=== PATIENT | female | born 1970 | race Caucasian/White ===

== ENCOUNTER 2020-07-03 09:39 | Outpatient (CLI) | payer OTHER, SELFPAY ==
--- NOTE | 2020-07-03 09:53 | MM_ITS ---
WS: [id number] BILATERAL DIGITAL DIAGNOSTIC MAMMOGRAM MAMMOGRAPHY WITH CAD CLINICAL INFORMATION: 6 MO F/U ABNORMAL MAMMO COMPARISON: December 01, 2018 TECHNIQUE: Bilateral CC, MLO, and ML views. FINDINGS: Scattered fibroglandular densities bilaterally. Punctate and lucent centered calcifications. A few st able intramammary lymph nodes are unchanged. Ultrasound is pending. ULTRASOUND BREAST LEFT TECHNIQUE: Ultrasound left breast focused area of concern. CLINICAL INFORMATION: 6 MO F/U ABNORMAL MAMMO COMPARISON: 2018 FINDINGS: Ultrasound left breast at the 2:00 and 4:00 positions. Again seen are a few hypoechoic lesions better assessed today with echogenic [place] consistent with incidental lymph nodes. No evidence of pathologic mass or lesion to target for biopsy. Recommend return to annual mammography. MM/[place] [id number] IMPRESSION: BI-RADS: 2-Benign FOLLOW UP: 1 Year Follow-up Recommend return to annual screening mammography.
== END 2020-07-03 09:40 | disposition home or self-care (01) ==
LOC: RADSHAW 09:42
PROVIDERS: Family Provider Family Medicine; PCP Family Medicine; Visit Provider Family Medicine
DX: R92.8 Other abnormal and inconclusive findings on diagnostic imaging of breast (principal)
CPT/HCPCS: 76642; 77066

== ENCOUNTER → 2021-05-05 10:04 | Outpatient (BNVA) | payer OTHER, SELFPAY | PROVIDERS: Family Provider Family Medicine; PCP Family Medicine; Referring Provider Family Medicine; Visit Provider Specialist | DX: G25.0 Essential tremor (principal); Z71.85 Encounter for immunization safety counseling; F17.200 Nicotine dependence, unspecified, uncomplicated | CPT/HCPCS: 99203 ==

== ENCOUNTER 2022-05-11 15:22 | Outpatient (CLI) | payer OTHER, SELFPAY ==
--- NOTE | 2022-05-11 15:30 | MM_ITS ---
WS: [id number] VIEWS: MLO and CC views both breasts. 3D digital tomosynthesis is also included in this exam. Comparison made with prior exam of 02/09/2016, 03/10/2017, 10/17/2018, 07/03/2020.. Findings: There was no sign of mass, architectural distortion or suspicious calcification in either breast. Sta ble appearing nodular densities in both breasts.Scattered fibroglandular densities MM/[place] [id number] Impression: BI-RADS: 2-Benign FOLLOW-UP: 1 Year Follow-up This mammogram was also analyzed by the Computer Aided Detection System R2 Imag e Sustainability Engineer.
== END 2022-05-11 15:23 | disposition home or self-care (01) ==
LOC: RAD 15:23
PROVIDERS: PCP Family Medicine; Visit Provider Family Medicine
DX: Z12.31 Encounter for screening mammogram for malignant neoplasm of breast (principal)
CPT/HCPCS: 77063; 77067

== ENCOUNTER → 2023-08-30 15:21 | Outpatient (BNVA) | payer OTHER, SELFPAY | PROVIDERS: PCP Family Medicine; Visit Provider Nurse Practitioner Family | DX: J02.9 Acute pharyngitis, unspecified (principal) | CPT/HCPCS: 87880 ==

== ENCOUNTER 2023-11-16 09:30 | Emergency (ER) | payer OTHER, SELFPAY ==
[2023-11-16 09:35] VITALS: BP 124/78; PULSE 83; RESP 18; TEMP 36.7; O2SAT 100
--- NOTE | 2023-11-16 09:48 | XRR_ITS ---
PROCEDURE INFORMATION: Exam: XR Chest Exam date and time: 11/16/2023 9:59 AM Age: 52 years old Clinical indication: Pain; Chest pressure; Additional info: Cp TECHNIQUE: Imaging protocol: Radiologic exam of the chest. Views: 1 view. COMPARISON: No relevant prior studies available. FINDINGS: Lungs: No focal lung consolidation. Chronic appearing interstitial lung markings. Right lower lung 0.2 cm granuloma. Pleural spaces: No pleural effusion. No pneumothorax. Heart/Mediastinum: Unremarkable. No cardiomegaly. Bones/joints: No acute bony abnormality. XR/XR chest 1V portable [id number] IMPRESSION: No focal lung consolidation. Chronic appearing interstitial lung markings.
--- NOTE | 2023-11-16 09:48 | ECG_ITS ---
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 Measurements Intervals [place] Rate: 87 P: 51 MS: 151 QRS: 39 QRSD: 82 T: 42 QT: 329 QTc: 396 Interpretive Statements SINUS RHYTHM LOW QRS VOLTAGE IN PRECORDIAL LEADS [QRS DEFLECTION < 1.0 mV IN CHEST LEADS] No previous ECG available for comparison Electronically Signed On 11-16-2023 18:10:58 CDT by Daniela James M.D. [id number]
--- NOTE | 2023-11-16 09:56 | ED_ITS ---
HPI - Chest Pain 2 General: Chief Complaint: Chest Pain Stated Complaint: chest pains Time Seen by Provider: 11/16/23 09:45 Source: patient Mode of arrival: ambulatory Limitations: no limitations History of Present Illness: 52-year-old female states she has been h aving some chest pain since 4 AM. States been a sharp pain In the center of the right side of her chest had some dyspnea as well. She denies any worse improved factors states pain is currently a 3 out of 10. Denies any nausea vomiting or abdominal pain no history of heart disease. Associated symptoms: Reports dyspnea; Deny abdominal pain, fever(s), nausea or vomiting Review of Systems 2 Const: Denies: fever(s), chills, body aches or change in appetite ENMT: Denies: throat pain or dental pain Card: Reports: chest pain Resp: Reports: dyspnea GI: Denies: abdominal pain, nausea, vomiting or diarrhea Musc: Denies: neck pain or back pain Skin/Breast: Denies: rash Neuro: Denies: headache(s) PFSH ED 2 PFSH: Family History Other CAD (coronary artery disease) Cancer Hypertension Physical Exam 2 Const: COMMON NORMALS: no acute distress, patient oriented x3 and healthy appearing HENMT: COMMON NORMALS: normocephalic and atraumatic HEAD & SCALP: n ormocephalic and atraumatic Neck/C-Spine: COMMON NORMALS: full ROM and supple Chest: COMMONS NORMALS: normal inspection of the chest Resp: COMMON NORMALS: normal respiratory effort, No retractions, No use of accessory muscles and clear to auscultation bilaterally AUSCULTATION: clear to auscultation bilaterally Cardio: COMMON NORMALS: regular rate, regular rhythm and No murmurs present (Cardio) RATE: regular rate RHYTHM: regular rhythm GI: COMMON NORMALS: Normal to inspection, nondistended, normoactive bowel sounds present, Soft to palpation, non-tender and no masses PALPATION: Yes Soft to palpation Extremity: COMMON NORMALS: normal to inspection and full ROM Neuro: COMMON NORMALS: patient oriented x3, moves all extremities and no focal motor deficits Psych: COMMON NORMALS: mental status grossly normal, Normal thought process present and cooperative THOUGHT PROCESS: Normal thought process present Skin: COMMON NORMALS: no rashes or lesions noted and no wounds GENERAL SKIN EXAM: no rashes or lesions noted Course 2 Vital Signs: Vital signs: Vital Signs Temperature 98.1 F 11/16/23 09:35 Pulse Rate 79 11/16/23 12:07 Respiratory Rate 15 11/16/23 09:57 Blood Pressure 114/81 11/16/23 12:07 Pulse Oximetry 93 11/16/23 12:07 Oxygen Delivery Me thod Room Air 11/16/23 12:07 MDM - Chest Pain Medical Decision Making Patient presents here with chest pain atypical in nature her troponins here are negative D-dimer is negative no signs of pulm embolism or dissection she is stable for discharge she is to follow-up with PCP return if worsening she understands agrees to plan Medical Records I reviewed the patient's medical records. Lab Data I reviewed the patient's lab results. 11/16/23 09:53 11/16/23 09:53 Radiology Impressions Chest X-Ray 11/16/23 09:48 IMPRESSION: No focal lung consolidation. Chronic appearing interstitial lung markings. Laboratory Results WBC 9.98 10^3/uL (3.29-11.43) 11/16/23 09:53 RBC 5.03 10^6/uL (3.85-5.65) 11/16/23 09:53 Hgb 15.30 g/dL (11.27-16.99) 11/16/23 09:53 Hct 45.9 % (36-47) 11/16/23 09:53 MCV 91.3 fl (85-98) 11/16/23 09:53 MCH 30.4 pg (27-33) 11/16/23 09:53 MCHC 33.3 g/dL (30-55) 11/16/23 09:53 RDW 12.5 % (12.1-15.1) 11/16/23 09:53 Plt Count 348 10^3/cmm (157-399) 11/16/23 09:53 MPV 9.4 fL (7.4-10.4) 11/16/23 09:53 Neut % (Auto) 72.4 % 11/16/23 09:53 Lymph % (Auto) 17.6 % 11/16/23 09:53 [place] % (Auto) 5.5 % 11/16/23 09:53 Eos % (Auto) 3.6 % 11/16/23 09:53 Baso % (Auto) 0.6 % 11/16/23 09:53 Neut # (Auto) 7.22 10^3/uL (1.8-7.7) 11/16/23 09:53 Lymph # (Auto) 1.8 10^3/uL (0.8-4.8) 11/16/23 09:53 [place] # (Auto) 0.6 10^3/uL (0.2-0.9) 11/16/23 09:53 Eos # (Auto) 0.4 10^3/uL (0.0-0.8) 11/16/23 09:53 Baso # (Auto) 0.1 10^3/uL (0.0-0.1) 11/16/23 09:53 Nucleated RBC % (auto) 0 % 11/16/23 09:53 Nucleated RBCs # 0.0 /100WBC 11/16/23 09:53 PT 12.50 SECONDS (12.1-14.9) 11/16/23 09:53 INR 0.91 (0.8-1.2) 11/16/23 09:53 D-Dimer 0.36 ug/mLFEU (0-0.59) 11/16/23 09:53 Sodium 139 mmol/L (136-145) 11/16/23 09:53 Potassium 4.3 mmol/L (3.5-5.1) 11/16/23 09:53 Chloride 101 mmol/L (98-107) 11/16/23 09:53 Carbon Dioxide 28 mmol/L (22-29) 11/16/23 09:53 Anion Gap 14.3 (5-19) 11/16/23 09:53 BUN 10 mg/dL (6-20) 11/16/23 09:53 Creatinine 0.7 mg/dL (0.5-0.9) 11/16/23 09:53 GFR Calculation 87.9 mL/min (90-130) L 11/16/23 09:53 Glucose 95 mg/dL (65-115) 11/16/23 09:53 Calculated Osmolality 287 mOsm/kg (285-295) 11/16/23 09:53 Calcium 9.1 mg/dL (8.5-10.5) 11/16/23 09:53 Total Bilirubin 0.4 mg/dL (0.15-1.2) 11/16/23 09:53 AST 20 U/L (0-32) 11/16/23 09:53 ALT 16 U/L (0-33) 11/16/23 09:53 Alkaline Phosphatase 67 U/L (35-105) 11/16/23 09:53 Troponin T Baseline < 6 ng/L (0-10) 11/16/23 09:53 Troponin T 120 Minute 6.00 ng/L (0-10) 11/16/23 11:52 Delta Troponin T 0.07786 ABS# (0-10) 11/16/23 11:52 Total Protein 7.7 g/dL (6.6-8.7) 11/16/23 09:53 Albumin 4.4 g/dL (3.5-5.2) 11/16/23 09:53 Globulin 3.3 g/dL (1.3-4.6) 11/16/23 09:53 Lipase 32 U/L (13-60) 11/16/23 09:53 All radiology interpretation(s) finalized by discharge EKG Data EKG 1: I personally reviewed and interpreted this EKG as follows: EKG interpretation date: 11/16/23 EKG interpretation time: 09:33 Interpretation: nsr hr [address] or t wave abnormalities qrs 82 qtc 373 EKG 2: I personally reviewed and interpreted this EKG as follows: EKG interpretation date: 11/16/23 EKG interpretation time: 12:05 Interpretation: nsr hr [address] or t wave abnormalities qrs 90 qtc 384 Discharge Plan Discharge Patient Disposition: Home Clinical Impression: Chest pain Condition: Stable Prescriptions: No Action No Known Home Medications Discharge Orders: Discharge ED (Routine); Ordered 11/16/23 Ordered By: Coleman Hernández Referrals: Megha Howard MD [Primary Care Provider] - 1-3 days Discharge Diet: Advance as tolerated Discharge Activity: Resume usual activity Patient Instructions: Chest Wall Pain (ED) Coding Level of Care Code ED Welding Equipment Sales Representative for Lylag Shey
[2023-11-16 09:57] VITALS: BP 124/79; PULSE 78; RESP 15; O2SAT 96
[2023-11-16 10:04] LABS: Basophils # 0.1 10^3/uL (0.0-0.1); Basophils % 0.6 %; Eosinophils # 0.4 10^3/uL (0.0-0.8); Eosinophils % 3.6 %; Hematocrit 45.9 % (36-47); Lymphocytes # 1.8 10^3/uL (0.8-4.8); Lymphocytes % 17.6 %; Mean Corpuscular HGB Conc 33.3 g/dL (30-55); Mean Corpuscular Hemoglobin 30.4 pg (27-33); Mean Corpuscular Volume 91.3 fl (85-98); Mean Platelet Volume 9.4 fL (7.4-10.4); Monocytes # 0.6 10^3/uL (0.2-0.9); Monocytes % 5.5 %; Neutrophils # 7.22 10^3/uL (1.8-7.7); Neutrophils % 72.4 %; Nucleated Red Blood Cells % 0 %; Platelet Count 348 10^3/cmm (157-399); Red Blood Count 5.03 10^6/uL (3.85-5.65); Red Cell Distribution Width 12.5 % (12.1-15.1); White Blood Count 9.98 10^3/uL (3.29-11.43)
[2023-11-16] MEDS: aspirin 81 mg Chew Tablet 324 MG PO (10:11)
[2023-11-16 10:18] LABS: Alanine Aminotransferase 16 U/L (0-33); Albumin Level 4.4 g/dL (3.5-5.2); Alkaline Phosphatase 67 U/L (35-105); Anion Gap 14.3 (5-19); Aspartate Amino Transferase 20 U/L (0-32); Blood Urea Nitrogen 10 mg/dL (6-20); Calcium 9.1 mg/dL (8.5-10.5); Carbon Dioxide 28 mmol/L (22-29); Chloride 101 mmol/L (98-107); Globulin 3.3 g/dL (1.3-4.6); Glomerular Filtration Rate 87.9 mL/min (90-130); Glucose 95 mg/dL (65-115); Lipase 32 U/L (13-60); Osmolality Calculated 287 mOsm/kg (285-295); Potassium 4.3 mmol/L (3.5-5.1); Sodium 139 mmol/L (136-145); Total Bilirubin 0.4 mg/dL (0.15-1.2); Total Protein 7.7 g/dL (6.6-8.7)
[2023-11-16 10:19] LABS: Troponin(5th) Baseline < 6 ng/L (0-10)
[2023-11-16 10:24] VITALS: BP 128/79; PULSE 83; O2SAT 95
[2023-11-16 10:48] LABS: INR 0.91 (0.8-1.2)
[2023-11-16 10:49] LABS: D Dimer 0.36 ug/mLFEU (0-0.59)
--- NOTE | 2023-11-16 11:48 | ECG_ITS ---
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 Measurements Intervals [place] Rate: 69 P: 52 [place]: 161 QRS: 42 QRSD: 90 T: 51 QT: 364 QTc: 392 Interpretive Statements SINUS RHYTHM LOW QRS VOLTAGE IN PRECORDIAL LEADS [QRS DEFLECTION < 1.0 mV IN CHEST LEADS] Compared to ECG 11/16/2023 09:33:09 No significant changes Electronically Signed On 11-17-2023 0:11:45 CDT by Daniela James M.D. [id number]
[2023-11-16 12:07] VITALS: BP 114/81; PULSE 79; O2SAT 93
[2023-11-16 12:19] LABS: Troponin 5 2HR Delta 0.00001 ABS# (0-10)
== END 2023-11-16 12:36 | disposition home or self-care (01) ==
PROVIDERS: Emergency Provider Emergency Medicine; PCP Family Medicine
DX: R07.9 Chest pain, unspecified (principal)
CPT/HCPCS: 36415; 71045; 80053; 83690; 84484; 85025; 85378; 85610; 93005; 99285

== ENCOUNTER 2024-08-23 09:31 | Outpatient (CLI) | payer OTHER, SELFPAY ==
--- NOTE | 2024-08-23 09:32 | MM_ITS ---
WS: [id number] BILATERAL SCREENING DIGITAL TOMOSYNTHESIS MAMMOGRAM WITH CAD HISTORY: SCREENING COMPARISON: 05/11/2022 and 07/03/2020 and 10/17/2018 Bilateral CC and MLO views with tomosynthesis and synthetic mammography submitted. Computer aided detection analyzed. Breast composition: There are scattered areas of fibroglandular density. No suspicious masses, microcalcifications or architectural distortion. Stable calcifications and masses. MM/MM scr BI tomosynthesis [id number] IMPRESSION: BI-RADS: 2 - Benign. FOLLOW UP: 1 Year Follow-up
== END 2024-08-23 09:32 | disposition home or self-care (01) ==
PROVIDERS: PCP Family Medicine; Visit Provider Family Medicine
DX: Z12.31 Encounter for screening mammogram for malignant neoplasm of breast (principal); R92.323 Mammographic fibroglandular density, bilateral breasts; R92.1 Mammographic calcification found on diagnostic imaging of breast
CPT/HCPCS: 77063; 77067